=== PATIENT | female | born 1965 | race Two or more races ===

== ENCOUNTER 2018-07-29 08:57 | Day surgery (SDC) | payer BC, OTHER ==
[2018-07-22 15:21] VITALS: BMI 24.9
[2018-07-29] MEDS ORDERED: PROPOFOL 20 ML ONE (10:03)
[2018-07-29] MEDS ORDERED: LIDOCAINE HCL/PF 2% SDV 5ML VIAL ONE (10:13)
[2018-07-29 11:07] VITALS: BP 128/70; PULSE 64; TEMP 97.9
== END 2018-07-29 11:07 | disposition home or self-care (01) ==
LOC: FASU-ENDO 08:57
PROVIDERS: ATTEND Internal Medicine Gastroenterology
PROC: 0DJD8ZZ Inspection of Lower Intestinal Tract, Via Natural or Artificial Opening Endoscopic (ICD-10-PCS; principal; 2018-07-29 10:15)
DX: Z12.11 Encounter for screening for malignant neoplasm of colon (principal)
CPT/HCPCS: 84703